=== PATIENT | female | born 1970 | race Caucasian/White ===

== ENCOUNTER 2018-03-24 09:12 | Outpatient (CLI) | payer OTHER ==
--- NOTE | 2018-03-25 09:15 | MMO ---
BILATERAL DIGITAL SCREENING MAMMOGRAMS: HISTORY: A 48-year-old female who presents for digital screening mammography. COMPARISON: 07/18/2013, 08/06/2012. This patient's mammogram is interpreted with the assistance of computer-aided detection. The breasts are heterogeneously dense, which can obscure small masses. Stable typically benign calc ifications. Stable circumscribed nodule in the inner lower right breast. IMPRESSION: BI-RADS category 2, benign findings. Continued routine screening. BIRADS 2: Benign Finding(s) Routine annual screening mammography (for women over age 40) POS: [facility]
== END 2018-03-24 09:13 | disposition home or self-care (01) ==
LOC: SCSMAMMO 09:12
PROVIDERS: ATTEND Family Medicine
DX: Z12.31 Encounter for screening mammogram for malignant neoplasm of breast (principal)
CPT/HCPCS: 77067